=== PATIENT | female | born 1975 | race Caucasian/White ===

== ENCOUNTER 2019-04-09 14:18 | Inpatient (IN) | payer OTHER ==
[2019-04-09 17:10] VITALS: BMI 35.5
--- NOTE | 2019-04-09 18:49 | HP ---
CIWA Score - Admission Criteria OASAS Guidelines: Admission for Medically Managed Detox: Requires at least one of the followin. CIWA greater than 12 2. Seizures within the past 24 hours 3. Delirium tremens within the past 24 hours 4. Hallucinations within the past 24 hours 5. Acute intervention needed for co occurring medical disorder 6. Acute intervention needed for co occurring psychiatric disorder 7. Severe withdrawal that cannot be handled at a lower level of care (continued vomiting, continued diarrhea, abnormal vital signs) requiring intravenous medication and/or fluids 8. Admitting History and Physical - Admission History of Present Illness: 43 yo f w/ PMH Schizophrenia, PTSD, COPD, migraines, cervical cancer (in remission) who comes to [facility] for rehab for crack use. Patient endorses smoking $300 worth of crack daily for the past year. Her last use was today. Her first use was at 16 years old. Of note, the patient had previously used heroin, but stopped using it ~6 months ago and is now on suboxone as an outpatient. The patient also endorses "occasional" use of marijuana. She cannot remember the last time she used it. The patient was recently seen in the emergency department at [facility] for a COPD exacerbation and anxiety attack. She was given valium, duonebs and cought syrup w/ codiene during her ER stay. After she was seen, she was referred to this facility for further treatment. The patient states that she wants to stop using crack and "stop the rat race". Will admit the patient for rehabilitation. History Source: Patient Limitations to Obtaining History: No Limitations - Past Medical History MARKETING COMMUNICATION MANAGER: Yes: Migraine Pulmonary: Yes: COPD Reproductive: Yes: Other (cervical cancer (treated, in remission)) - Past Surgical History Past Surgical History: Yes: None Admission [facility] Allergies/Adverse Reactions: Allergies Allergy/AdvReac Type Severity Reaction Status Date / Time No Known Allergies Allergy Verified 04/09/19 16:53 - Ebola screening Have you traveled outside of the country in the last 21 days: No Have you had contact with anyone from an Ebola affected area: No - Review of Systems Constitutional: No Symptoms Reported Respiratory: reports: No Symptoms reported Cardiac: reports: No Symptoms Reported GI: reports: No Symptoms Reported Psychiatric: reports: Judgement Intact, Mood/Affect Appropiate, Orientated x3 Patient History - Smoking Cessation Smoking history: Current every day smoker Have you smoked in the past 12 months: Yes Aproximately how many cigarettes per day: 10 Initiated information on smoking cessation: Yes 'Breaking Loose' booklet given: 04/09/19 - Substances abused Crack Substance route: Smoking Frequency: Daily Amount used: 2 to 3 hundred dollars. Age of first use: 42 Date of last use: 04/09/19 Admission Physical Exam BHS - Vital Signs Vital Signs: Vital Signs - 24 hr 04/09/19 16:52 Temperature 96.3 F L Pulse Rate 84 Respiratory 20 Rate Blood Pressure 97/62 - Physical General Appearance: Yes: No Apparent Distress, Nourished HEENTM: Yes: EOMI, Normal ENT Inspection, SEAMUS Respiratory: Yes: Chest Non-Tender, Lungs Clear, Normal Breath Sounds, No Respiratory Distress, No Accessory Muscle Use Neck: Yes: Trachea in good position Cardiology: Yes: Regular Rhythm, Regular Rate, S1, S2. No: JVD, Murmur, Gallop/ S3, Gallop/S4 Abdominal: Yes: Normal Bowel Sounds, Non Tender, Flat, Soft Extremities: Yes: Normal Capillary Refill Neurological: Yes: toter II-XII NML intact, Fully Oriented, Alert, Motor Strength 5/5, Normal Mood/Affect, Normal Response Integumentary: Yes: Normal Color, Dry, Warm - Diagnostic (1) Crack cocaine use Current Visit: Yes Status: Acute (2) Opioid dependence in remission Current Visit: Yes Status: Acute (3) COPD (chronic obstructive pulmonary disease) Current Visit: Yes Status: Acute (4) Migraine Current Visit: Yes Status: Acute (5) Cervical cancer Current Visit: Yes Status: Acute Breathalyzer - Breathalyzer Breathalyzer: 0 Urine Drug Screen - Test Device Lot number: [id number] Expiration date: 10/21/00 - Control Is test valid?: Yes - Results Drug screen NEGATIVE: No Urine drug screen results: THC-Marijuana, WILLIE-Cocaine, MOP-Opiates, BZO- Benzodiazepines, BUP-Suboxone Inpatient Rehab Admission - Rehab Decision to Admit Inpatient rehab admission?: Yes - Initial Determination Are CD services needed?: Yes Free of communicable disease: Yes Not in need of hospitalization: Yes - Rehab Admission Criteria Previous failed treatment: Yes Poor recovery environment: Yes Comorbidities: Yes Lacks judgement: Yes Patient is meeting Inpatient Rehab admission criteria:: Yes
--- NOTE | 2019-04-09 19:11 | PN ---
"Teaching Attending Note Name of Resident: Craig Barrett ATTENDING PHYSICIAN STATEMENT I saw and evaluated the patient. I reviewed the resident's note and discussed the case with the resident. I agree with the resident's findings and plan as documented. SUBJECTIVE: pt here for rehab from cocaine use , reports 400 $/day , on buprenorphine for OUD , d/c from ER today 2/2 COPD exacerbation . OBJECTIVE: wnwd This report was requested by: Ayah Ramsey | Reference #: [id number] Others' Prescriptions Patient Name: Melina Lovett Date: 1975 Address: [place] [address] Sex: Female Rx Written Rx Dispensed Drug Quantity Days Supply Prescriber Name 03/24/2019 03/26/2019 buprenorphine-naloxone 8-2 mg sl tablet 42 21 Ashley Watson MD 03/03/2019 03/04/2019 buprenorphine-naloxone 8-2 mg sl tablet 42 21 Dai Tolentino A 02/05/2019 02/11/2019 buprenorphine-naloxone 8-2 mg sl tablet 42 21 Alycia So 02/04/2019 02/04/2019 buprenorphine-naloxone 8-2 mg sl tablet 21 7 Alcon Sánchez) 01/15/2019 01/16/2019 buprenorphine-naloxone 8-2 mg sl film 42 14 Alcon Sánchez) 12/23/2018 12/29/2018 buprenorphine-naloxone 8-2 mg sl tablet 45 15 Alcon Sánchez) 12/11/2018 12/12/2018 buprenorphine-naloxone 8-2 mg sl film 28 14 Ashley Watson MD 11/26/2018 11/27/2018 buprenorphine-naloxone 8-2 mg sl tablet 28 14 Alcon Sánchez) 11/18/2018 11/18/2018 buprenorphine-naloxone 8-2 mg sl tablet 20 10 Alcon Sánchez) 10/28/2018 10/28/2018 buprenorphine-naloxone 8-2 mg sl film 42 21 Alcon Sánchez) 10/14/2018 10/14/2018 buprenorphine-naloxone 8-2 mg sl film 28 14 Alcon Sánchez) 09/30/2018 09/30/2018 buprenorphine-naloxone 8-2 mg sl film 28 14 Alcon Sánchez) 09/16/2018 09/16/2018 buprenorphine-naloxone 8-2 mg sl film 28 14 Alcon Sánchez () 09/02/2018 09/02/2018 buprenorphine-naloxone 8-2 mg sl film 28 14 Alcon Sánchez) 08/19/2018 08/20/2018 buprenorphine-naloxone 8-2 mg sl film 28 14 Alcon Sánchez) 08/14/2018 08/14/2018 buprenorphine-naloxone 8-2 mg sl film 5 5 Alcon Sánchez () Patient Name: Melina Lovett Date: 1975 Address: [address] [place] [address] Sex: Female Rx Written Rx Dispensed Drug Quantity Days Supply Prescriber Name 08/07/2018 08/07/2018 buprenorphine-naloxone 8-2 mg sl film 14 7 Susan Vidales (MOMO) Vital Signs - 24 hr 04/09/19 16:52 Temperature 96.3 F L Pulse Rate 84 Respiratory 20 Rate Blood Pressure 97/62 ASSESSMENT AND PLAN: Cocaine dependence - rehab OUD on agonist therapy ."
[2019-04-09] MEDS ORDERED: MENTHOL/PHENOL 1 EACH UD MM PRN (19:24)
[2019-04-09] MEDS ORDERED: LOPERAMIDE HCL 2 MG CAPSULE PO PRN (19:24)
[2019-04-09] MEDS ORDERED: MAGNESIUM HYDROX 2400MG/30ML ORAL SUSPENSION 30 ML CUP PO PRN (19:24)
[2019-04-09] MEDS ORDERED: MAGNESIUM CITRATE 300 ML BOTTLE PO PRN (19:24)
[2019-04-09] MEDS ORDERED: ACETAMINOPHEN 325 MG TABLET (FP) PO PRN (19:24)
[2019-04-09] MEDS ORDERED: P-EPHED 60MG/TRIPROLIDI 2.5MG TABLET PO PRN (19:24)
[2019-04-09] MEDS ORDERED: ALBUTEROL SO4 2.5/IPRATROPIUM 0.5 INH SOL 3 ML VIAL.NEB. NEB PRN (19:26)
[2019-04-09] MEDS: MELATONIN 5 MG TABLETS PO PRN (22:03)
[2019-04-09] MEDS: hydrOXYzine PAMOATE 50 MG CAPSULE (FP) PO PRN (22:03)
[2019-04-09] MEDS: THIAMINE HCL 100 MG TABLET (FP) PO SCH (22:03)
[2019-04-10] MEDS: NICOTINE 21 MG/24 HOURS TOPICAL PATCH TD SCH (09:18)
[2019-04-10] MEDS: PRENATAL VITAMINS W/ FOLIC ACID TABLET (FP) PO SCH (09:18)
--- NOTE | 2019-04-10 11:51 | CONSULT ---
[facility] Psychiatric Consult - Data Date of interview: 04/10/19 Admission source: [facility] Identifying data: Ms Lovett is a 43 years old female, mother of 2 children, unemployed receiving SSD, homeless living in a alf referred from [facility] on 04/09/19 for inpatient rehabilitation for cocaine Substance Abuse History: Reports history of crack cocaine use. Refer to addiction counselor's summary for further information Medical History: Significant for COPD, migraines and history of treatment for cervical cancer. Patient is on Suboxone 8 mg/2 mg po BID from a [facility] physician. Smokes 10 cigarettes daily Psychiatric History: Patient is somewhat hostile and very irritable during the interview. Reports that she was diagnosed with Schizophrenia and PTSD at age 14. Reports multiple previous psychiatric hospitalizations in [place] and one in 2017 at [facility] in [facility]. Reports seeing Dr Sevilla at her alf and she is prescribed Buspar 30 mg/bid, Thorazine 10o mg/bid, Gabapentin 600 mg/tid and Prazosin 5 mg/hs. Reports at least 4 previous suicidal attempts via overdose. At present, denies experiencing psychotic, manic symptoms. However, reports feeling depressed, irritable and sleeping poorly Physical/Sexual Abuse/Trauma History: Not elicited due to patient's hostility Mental Status Exam - Mental Status Exam Alert and Oriented to: Time, Place, Person Cognitive Function: Fair Patient Appearance: Well Groomed Mood: Depressed, Irritable Affect: Appropriate Patient Behavior: Cooperative Speech Pattern: Clear Voice Loudness: Normal Thought Process: Intact, Goal Oriented Thought Disorder: Not Present Hallucinations: Denies Suicidal Ideation: Denies Homicidal Ideation: Denies Insight/Judgement: Fair Sleep: Poorly Appetite: Good Muscle strength/Tone: Normal Gait/Station: Normal Psychiatric Findings - Problem List ([place] 1, 2,3) (1) Schizoaffective disorder Current Visit: Yes Status: Chronic (2) PTSD (post-traumatic stress disorder) Current Visit: Yes Status: Chronic (3) Cocaine dependence Current Visit: Yes Status: Acute (4) Opioid dependence on agonist therapy Current Visit: Yes Status: Acute (5) Opioid dependence on agonist therapy Current Visit: Yes Status: Chronic (6) Nicotine dependence Current Visit: Yes Status: Chronic (7) Cervical cancer Current Visit: Yes Status: Resolved (8) Migraine Current Visit: Yes Status: Chronic - Initial Treatment Plan Initial Treatment Plan: 1) Continue Buspar 30 mg po BID, Thorazine 100 mg po BID , Gabapentin 600 mg po TID and Prazosin 5 mg po HS. 2) Continue inpatient rehabilitation
[2019-04-10 11:58] LABS: HEMOGLOBIN 13.6 GM/dL (10.7-15.3); MCH 30.9 pg (25.7-33.7); MEAN CELL VOLUME 90.6 fl (80-96); MEAN PLT VOLUME 9.9 fl (7.5-11.1); PLATELET COUNT 212 K/MM3 (134-434); RBC 4.41 M/mm3 (3.60-5.2); RDW 15.3 % (11.6-15.6); WHITE BLOOD COUNT 9.1 K/mm3 (4.0-10.0)
[2019-04-10] MEDS: IBUPROFEN 400 MG TABLET (FP) PO PRN (12:10)
[2019-04-10] MEDS: guaiFENesin 200 MG/10 ML 10 ML UNIT-DOSE CUPS PO PRN (12:11)
[2019-04-10 12:47] LABS: ALBUMIN 4.1 g/dl (3.4-5.0); BILIRUBIN,TOTAL 1.1 mg/dL (0.2-1); BLOOD UREA NITROGEN 15.8 mg/dL (7-18); CALCIUM 9.4 mg/dL (8.5-10.1); CREATININE 0.8 mg/dL (0.55-1.3); POTASSIUM 4.6 mmol/L (3.5-5.1); TOT PROT 6.7 g/dl (6.4-8.2)
--- NOTE | 2019-04-10 14:58 | PN ---
[facility] Progress Note Note: PATIENT ADMITTED TO REHAB FOR COCAINE DEPENDENCE. PATIENT SLEEPING AND REQUESTED TO HAVE ASSESSMENT DEFERRED TO ANOTHER TIME. Vital Signs Temperature 97.9 F 04/10/19 07:08 Pulse Rate 60 04/10/19 07:08 Respiratory Rate 18 04/10/19 07:08 Blood Pressure 115/68 04/10/19 07:08 O2 Sat by Pulse Oximetry (%)
[2019-04-10] MEDS ORDERED: PT OWN MED DRAWER 7, Y5N ONE (15:15)
[2019-04-10] MEDS: GABAPENTIN 300 MG CAPSULE PO SCH ×2 (16:13→22:03)
[2019-04-10] MEDS: chlorproMAZINE HCL 100 MG TABLET PO SCH ×2 (16:14→22:03)
[2019-04-10] MEDS: THIAMINE HCL 100 MG TABLET (FP) PO SCH (22:03)
[2019-04-10] MEDS: PRAZOSIN HCL 5 MG CAPSULE PO SCH (22:04)
[2019-04-11] MEDS: GABAPENTIN 300 MG CAPSULE PO SCH ×3 (08:01→21:52)
[2019-04-11] MEDS: IBUPROFEN 400 MG TABLET (FP) PO PRN ×2 (10:03→21:53)
[2019-04-11] MEDS: PRENATAL VITAMINS W/ FOLIC ACID TABLET (FP) PO SCH (10:04)
[2019-04-11] MEDS: chlorproMAZINE HCL 100 MG TABLET PO SCH ×2 (10:04→21:55)
[2019-04-11] MEDS: NICOTINE 21 MG/24 HOURS TOPICAL PATCH TD SCH (10:04)
[2019-04-11] MEDS: THIAMINE HCL 100 MG TABLET (FP) PO SCH (21:52)
[2019-04-11] MEDS: PRAZOSIN HCL 5 MG CAPSULE PO SCH (21:55)
[2019-04-11] MEDS: MELATONIN 5 MG TABLETS PO PRN (22:32)
[2019-04-12] MEDS: GABAPENTIN 300 MG CAPSULE PO SCH ×3 (06:51→21:15)
[2019-04-12] MEDS ORDERED: PT OWN MED DRAWER 7, Y5N ONE ×3 (08:51→21:18)
[2019-04-12] MEDS: PRENATAL VITAMINS W/ FOLIC ACID TABLET (FP) PO SCH (09:53)
[2019-04-12] MEDS: NICOTINE 21 MG/24 HOURS TOPICAL PATCH TD SCH (09:53)
[2019-04-12] MEDS: chlorproMAZINE HCL 100 MG TABLET PO SCH ×2 (09:54→21:19)
[2019-04-12] MEDS: IBUPROFEN 400 MG TABLET (FP) PO PRN ×2 (09:55→17:16)
[2019-04-12 11:55] LABS: EPI CELLS 7.2 /HPF (0-5/HPF); HYALINE CASTS 45 /lpf (0-8); PH,URINE 5.5 (5.0-8.0); URINE APPEARANCE CLOUDY; URINE BACTERIA 156.1 /hpf (NEGATIVE); URINE BILIRUBIN NEGATIVE (NEGATIVE); URINE COLOR YELLOW; URINE GLUCOSE (UA) NEGATIVE (NEGATIVE); URINE KETONE TRACE (NEGATIVE); URINE LEUK ESTERASE 1+ (NEGATIVE); URINE NITRITE NEGATIVE (NEGATIVE); URINE PROTEIN NEGATIVE (NEGATIVE); URINE RBC 11 /hpf (0-4); URINE WBC 51 /hpf (0-5)
[2019-04-12 14:29] LABS: URINE CRYSTALS PRESENT /hpf
[2019-04-12] MEDS: hydrOXYzine PAMOATE 50 MG CAPSULE (FP) PO PRN (20:58)
[2019-04-12] MEDS: MELATONIN 5 MG TABLETS PO PRN (21:14)
[2019-04-12] MEDS: THIAMINE HCL 100 MG TABLET (FP) PO SCH (21:14)
[2019-04-12] MEDS: PRAZOSIN HCL 5 MG CAPSULE PO SCH (21:18)
[2019-04-13] MEDS: GABAPENTIN 300 MG CAPSULE PO SCH ×3 (06:39→22:03)
[2019-04-13] MEDS ORDERED: PT OWN MED DRAWER 7, Y5N ONE ×2 (08:36→22:05)
[2019-04-13] MEDS: PRENATAL VITAMINS W/ FOLIC ACID TABLET (FP) PO SCH (09:47)
[2019-04-13] MEDS: NICOTINE 21 MG/24 HOURS TOPICAL PATCH TD SCH (09:47)
[2019-04-13] MEDS: IBUPROFEN 400 MG TABLET (FP) PO PRN (09:48)
[2019-04-13] MEDS: guaiFENesin 200 MG/10 ML 10 ML UNIT-DOSE CUPS PO PRN (09:49)
[2019-04-13] MEDS: hydrOXYzine PAMOATE 50 MG CAPSULE (FP) PO PRN (09:50)
[2019-04-13] MEDS: chlorproMAZINE HCL 100 MG TABLET PO SCH ×2 (09:50→22:06)
[2019-04-13] MEDS: MAG HYDROX/AL HYDROX/SIMETH 30 ML UNIT-DOSE CUP PO PRN (18:08)
[2019-04-13] MEDS: THIAMINE HCL 100 MG TABLET (FP) PO SCH (22:03)
[2019-04-13] MEDS: PRAZOSIN HCL 5 MG CAPSULE PO SCH (22:05)
[2019-04-13] MEDS: MELATONIN 5 MG TABLETS PO PRN (22:06)
[2019-04-14] MEDS: GABAPENTIN 300 MG CAPSULE PO SCH ×3 (06:22→22:39)
[2019-04-14] MEDS ORDERED: PT OWN MED DRAWER 7, Y5N ONE (08:19)
[2019-04-14] MEDS: NICOTINE 21 MG/24 HOURS TOPICAL PATCH TD SCH (09:43)
[2019-04-14] MEDS: chlorproMAZINE HCL 100 MG TABLET PO SCH ×2 (09:43→22:40)
[2019-04-14] MEDS: PRENATAL VITAMINS W/ FOLIC ACID TABLET (FP) PO SCH (09:43)
--- NOTE | 2019-04-14 10:17 | PREP.REFER ---
HIV PrEP/PEP - PrEP HIV Risk Assessment When was your last HIV test?: 02/2019- negative HIV Test offered: Refused Are you concerned about any sexual encounters past 6 months?: Yes (patient has sex in exchange for money) Have you had a STI in the last 6 months?: No Have you shared needles or other equipment?: No Are you interested in daily medication to help prevent HIV?: Yes (Patient is presently on PrEP and is requesting to continue it while she is in Rehab.) Recommendation: Consider PrEP referral Comment: Patient has been on PrEP for 1 month prior to admission, ordered by Dr. Tolentino at [place], prescription filled at [facility] pharmacy. Will verify prescription. Patient states she has had side effects that have now resolved. Does not want to re-start PrEP when she leaves, feels it would be better to continue while in Rehab. States she depends on sex exchange for daily needs.
--- NOTE | 2019-04-14 10:23 | PN ---
S Progress Note (SOAP) Subjective: Patient reports that she feels like there is something in her vagina. She had sex 1 day prior to admission, she is on PrEP. Patient has sex in exchange for money and does not use a condom. The RPR upon admission was negative. She has a PMHx of cervical cancer, but has been in remission since 2004. She sees her MACHINE CLERICAL VERIFIER at least once a year. Denies oral or anal sex, but agreed to pharyngeal swab for Chlamydia. Refused anal swab. Denies frequent urination, or urinating small amounts or burning on urination. U/A is positive for leukocytes. Denies tingling or itching. Objective: P/E: General: no apparent distress, but angry HEENTM: clear, Lungs: clear Heart: s1 s2 ABD: obese, soft, non-tender, non-distended, +BS 04/14/19 10:20 Laboratory Last Values WBC 9.1 K/mm3 (4.0-10.0) 04/10/19 08:47 RBC 4.41 M/mm3 (3.60-5.2) 04/10/19 08:47 Hgb 13.6 GM/dL (10.7-15.3) 04/10/19 08:47 Hct 40.0 % (32.4-45.2) 04/10/19 08:47 MCV 90.6 fl (80-96) 04/10/19 08:47 MCH 30.9 pg (25.7-33.7) 04/10/19 08:47 MCHC 34.0 g/dl (32.0-36.0) 04/10/19 08:47 RDW 15.3 % (11.6-15.6) 04/10/19 08:47 Plt Count 212 K/MM3 (134-434) 04/10/19 08:47 MPV 9.9 fl (7.5-11.1) 04/10/19 08:47 Sodium 139 mmol/L (136-145) 04/10/19 08:47 Potassium 4.6 mmol/L (3.5-5.1) 04/10/19 08:47 Chloride 106 mmol/L (98-107) 04/10/19 08:47 Carbon Dioxide 27 mmol/L (21-32) 04/10/19 08:47 Anion Gap 6 MMOL/L (8-16) L 04/10/19 08:47 BUN 15.8 mg/dL (7-18) 04/10/19 08:47 Creatinine 0.8 mg/dL (0.55-1.3) 04/10/19 08:47 Est GFR (CKD-EPI)AfAm 105.39 04/10/19 08:47 Est GFR (CKD-EPI)NonAf 90.93 04/10/19 08:47 Random Glucose 95 mg/dL (74-106) 04/10/19 08:47 Calcium 9.4 mg/dL (8.5-10.1) 04/10/19 08:47 Total Bilirubin 1.1 mg/dL (0.2-1) H 04/10/19 08:47 AST 29 U/L (15-37) 04/10/19 08:47 ALT 26 U/L (13-61) 04/10/19 08:47 Alkaline Phosphatase 100 U/L (45-117) 04/10/19 08:47 Total Protein 6.7 g/dl (6.4-8.2) 04/10/19 08:47 Albumin 4.1 g/dl (3.4-5.0) 04/10/19 08:47 Urine Color Yellow 04/12/19 08:30 Urine Appearance Cloudy 04/12/19 08:30 Urine pH 5.5 (5.0-8.0) 04/12/19 08:30 Ur Specific [place] 1.026 (1.010-1.035) 04/12/19 08:30 Urine Protein Negative (NEGATIVE) 04/12/19 08:30 Urine Glucose (UA) Negative (NEGATIVE) 04/12/19 08:30 Urine Ketones Trace (NEGATIVE) H 04/12/19 08:30 Urine Blood Negative (NEGATIVE) 04/12/19 08:30 Urine Nitrite Negative (NEGATIVE) 04/12/19 08:30 Urine Bilirubin Negative (NEGATIVE) 04/12/19 08:30 Urine Urobilinogen 1.0 mg/dL (0.2-1.0) 04/12/19 08:30 Ur Leukocyte Esterase 1+ (NEGATIVE) H 04/12/19 08:30 Urine WBC (Auto) 51 /hpf (0-5) 04/12/19 08:30 Urine RBC (Auto) 11 /hpf (0-4) 04/12/19 08:30 Urine Casts (Auto) 45 /lpf (0-8) 04/12/19 08:30 U Epithel Cells (Auto) 7.2 /HPF (0-5/HPF) 04/12/19 08:30 Urine Crystals (Auto) Present /hpf 04/12/19 08:30 Urine Bacteria (Auto) 156.1 /hpf (NEGATIVE) 04/12/19 08:30 RPR Titer Nonreactive (NONREACTIVE) 04/10/19 08:47 Assessment: Probably vaginal yeast infection; at risk for STIs (GC/Chlamydia, Trich, HPV, Herpes) 04/14/19 10:21 04/14/19 10:24 Plan: ordered chlamydia/GC oral and urine. Ordered trich test, urine culture Started flaygl po Will verify PrEP prescription and if confirmed, continue PrEP while in Rehab. Discussed safer sex with patient. Will continue to monitor,
--- NOTE | 2019-04-14 10:35 | PN ---
S Progress Note Note: patient is on Truvada for PrEP; she has been on it for 3 months. Confirmed with [facility] pharmacy.
[2019-04-14] MEDS ORDERED: EMTRICITABINE 200MG/TENOFOVIR 300MG PO SCH (10:45)
[2019-04-14] MEDS: metroNIDAZOLE 250 MG TABLET PO SCH ×2 (10:51→22:39)
[2019-04-14] MEDS: EMTRICITABINE 200MG/TENOFOVIR 300MG PO SCH (11:00)
[2019-04-14] MEDS: hydrOXYzine PAMOATE 50 MG CAPSULE (FP) PO PRN (11:54)
[2019-04-14] MEDS: MAG HYDROX/AL HYDROX/SIMETH 30 ML UNIT-DOSE CUP PO PRN (17:24)
[2019-04-14] MEDS ORDERED: ALBUTEROL SO4 2.5/IPRATROPIUM 0.5 INH SOL 3 ML VIAL.NEB. NEB PRN (19:26)
[2019-04-14] MEDS: THIAMINE HCL 100 MG TABLET (FP) PO SCH (22:39)
[2019-04-14] MEDS: MELATONIN 5 MG TABLETS PO PRN (22:39)
[2019-04-14] MEDS: PRAZOSIN HCL 5 MG CAPSULE PO SCH (22:40)
[2019-04-15] MEDS: GABAPENTIN 300 MG CAPSULE PO SCH (06:20)
[2019-04-15 07:04] VITALS: BP 108/70; PULSE 77; TEMP 97.2
[2019-04-15] MEDS: EMTRICITABINE 200MG/TENOFOVIR 300MG PO SCH (09:42)
[2019-04-15] MEDS: NICOTINE 21 MG/24 HOURS TOPICAL PATCH TD SCH (09:42)
[2019-04-15] MEDS: metroNIDAZOLE 250 MG TABLET PO SCH (09:42)
[2019-04-15] MEDS: chlorproMAZINE HCL 100 MG TABLET PO SCH (09:42)
[2019-04-15] MEDS: PRENATAL VITAMINS W/ FOLIC ACID TABLET (FP) PO SCH (09:43)
--- NOTE | 2019-04-15 09:59 | DS ---
[facility] Rehab Discharge Summary - [facility] Rehab Discharge Summary Admission Date: 04/09/19 Discharge Date: 04/15/19 - History Present History: Cocaine dependence, Opioid dependence Pertinent Past History: 43 yo f w/ PMH Schizophrenia, PTSD, COPD, migraines, cervical cancer (in remission) who comes to [facility] for rehab for crack use. Patient endorses smoking $300 worth of crack daily for the past year. Her last use was today. Her first use was at 16 years old. Of note, the patient had previously used heroin, but stopped using it ~6 months ago and is now on suboxone as an outpatient. The patient also endorses "occasional" use of marijuana. She cannot remember the last time she used it. The patient was recently seen in the emergency department at [facility] for a COPD exacerbation and anxiety attack. She was given valium, duonebs and cought syrup w/ codiene during her ER stay. After she was seen, she was referred to this facility for further treatment. - Discharge Physical Exam Vital Signs: Vital Signs Temperature 97.2 F L 04/15/19 07:03 Pulse Rate 77 04/15/19 07:03 Respiratory Rate 18 04/15/19 07:03 Blood Pressure 108/70 04/15/19 07:03 O2 Sat by Pulse Oximetry (%) Pertinent Admission Physical Exam Findings: General Appearance: Yes: No Apparent Distress, HEENTM: EOMI, SEAMUS Respiratory: Lungs Clear, Normal Breath Sounds, No Respiratory Distress, No Accessory Muscle Use Neck: Supple,Trachea in good position Cardiology: S1, S2. Abdominal: +Bowel Sounds, Non Tender, Neurological: Yes: sericulturist II-XII NML intact, Fully Oriented, Integumentary: color consistent throughout trunk and extremities - Treatment Discharge Condition: Discharge condition good (patient will return to program for outpatient therapy and retirement; does not want to wait for referral from counselor) Hospital Course: Patient attended groups, met with her counselor. She was seen by medical provider for complaints of vaginal discharge. STI testing, urine culture was ordered and collected. Patient reported unprotected sex and use of PrEP. Her PrEp was re-started. - Medication Discharge Medications: Ambulatory Orders Buspirone HCl [Buspar -] 30 mg PO BID 04/09/19 Chlorpromazine [Thorazine -] 100 mg PO BID 04/09/19 Folic Acid 1 tablet PO DAILY 04/09/19 Gabapentin 600 mg PO TID 04/09/19 Multivitamins [Multivit ([facility] Formulary)] 1 tablet PO DAILY 04/09/19 Prazosin HCl 5 mg PO HS 04/09/19 Ranitidine HCl [Zantac] 150 mg PO BID 04/09/19 Suboxone 8 mg-2 mg Sl Tablets 1 tab PO BID 04/09/19 metroNIDAZOLE [Flagyl -] 500 mg PO BID #14 tablet 04/15/19 - Medication-Assisted Treatment (MAT) Medication-Assisted Treatment (MAT): No - Discharge Instructions Diet, activity, other medical instructions: Diet: as tolerated Activity: as tolerated Other medical instructions: Please follow up with outpatient therapy, and see your PCP for review of labs. - Diagnosis (1) Opioid abuse Current Visit: Yes Status: Chronic (2) Cocaine dependence Current Visit: Yes Status: Chronic (3) Crack cocaine use Current Visit: Yes Status: Chronic - Follow-up Referral Minutes to complete discharge: 20 - AMA Did Patient Leave Against Medical Advice: No Additional Comments: patient does not want to continue rehabilitation therapy at this time. Feels her treatment has been sufficient and she wants to return to outpatient therapy. Patient was advised that she needed to follow up for results of STI testing and urine culture. Flaygl was ordered for home medications.
[2019-04-15] MEDS ORDERED: PANTOPRAZOLE 40 MG TABLET PO SCH (10:00)
== END 2019-04-15 11:17 | disposition home or self-care (01) | DRG 895 ==
LOC: YASAS 14:18 → Y3E 19:24
PROVIDERS: ADMIT Neuromusculoskeletal Medicine & OMM; ATTEND Neuromusculoskeletal Medicine & OMM
PROC: HZ42ZZZ Group Counseling for Substance Abuse Treatment, Cognitive-Behavioral (ICD-10-PCS; principal; 2019-04-09)
DX: F14.20 Cocaine dependence, uncomplicated (principal); F11.20 Opioid dependence, uncomplicated; F17.210 Nicotine dependence, cigarettes, uncomplicated; F25.9 Schizoaffective disorder, unspecified; F43.10 Post-traumatic stress disorder, unspecified; G43.909 Migraine, unspecified, not intractable, without status migrainosus; B37.3 Candidiasis of vulva and vagina; Z85.41 Personal history of malignant neoplasm of cervix uteri; Z91.013 Allergy to seafood; Z91.012 Allergy to eggs; Z59.0 Homelessness
CPT/HCPCS: 36415; 71046-TC-FY; 80053; 81003; 85027; 86593; 87086; 87491; 87591; 87661